=== PATIENT | female | born 2000 | race African-American/Black ===

== ENCOUNTER 2025-04-20 17:41 | Emergency (ER) | payer MEDICAID ==
[~2025-04-20] VITALS: Ht 170.2 cm; Wt 121.0 kg
[2025-04-20 17:46] VITALS: O2SAT 99
[2025-04-20 17:51] VITALS: TEMP 37; O2SAT 100
[2025-04-20 20:00] VITALS: BP 144/63; PULSE 73; RESP 18
[2025-04-20] MEDS: KETOROLAC 15MG/ML VIAL IM ONE (20:00)
[2025-04-20] MEDS: LIDOCAINE 5% PATCH TOP SCH (20:00)
[2025-04-20] MEDS ORDERED: IBUP-2028 MT (22:05)
[2025-04-20] MEDS ORDERED: OFLO5DRO RIGHTEYE (22:05)
[2025-04-20 22:37] LABS: CLARITY URINE CLEAR (CLEAR); COLOR URINE YELLOW (YELLOW); GLUCOSE URINE NEGATIVE (NEGATIVE); KETONES URINE NEGATIVE (NEGATIVE); LEUKOCYTE ESTERASE URINE TRACE (NEGATIVE); NITRITE URINE NEGATIVE (NEGATIVE); OCCULT BLOOD URINE NEGATIVE (NEGATIVE); PH URINE 5.0 (4.5-8.0); PROTEIN URINE NEGATIVE (NEGATIVE); SPECIFIC GRAVITY URINE 1.016 (1.005-1.030); UROBILINOGEN URINE 0.2 E.U./dL (0.2-1.0)
[2025-04-20 22:51] LABS: BACTERIA URINE NONE SEEN; RBC URINE NONE SEEN /hpf (0-2); SQUAMOUS EPITHELIAL CELL URINE NONE SEEN /lpf (RARE/1+); WBC URINE NONE SEEN /hpf (0-2)
== END 2025-04-20 22:19 | disposition home or self-care (01) ==
LOC: ER 17:41
DX: G89.29 Other chronic pain (principal); M54.50 Low back pain, unspecified
CPT/HCPCS: 99284; 81003; 81025; 72100; 96372; J1885